=== PATIENT | male | born 1960 | race Two or more races ===

== ENCOUNTER → 2020-10-01 | Day surgery (SDC) | payer OTHER, MEDICAID ==
[~2020-10-01] VITALS: Ht 167.6 cm; Wt 68.0 kg
[~2020-10-01] MED LIST: ATOR20TA50 PO; BUPIVACAINE/DEXTROSE MPF 0.75% 2 ML AMP IT ONE; EPINEPHrine HCL 1 MG/10 ML SYRG ONE; IOHEXOL 300 MG/ML 100ML BOTTLE IJ ONE; LIDOCAINE 2% (LOCAL ANESTH.) PF 5ml SDV ONE; MIDAZOLAM HCL 1MG/1ML-2 ML VIAL ONE; OMEP20TA PO; ONDANSETRON HCL 4 MG/2 ML VIAL ONE; PROPOFOL 10 MG/ML 20 ML IV ONE; SODIUM BICARBONATE 8.4 % INJ 50ML VIAL IV ONE; SODIUM CHLORIDE LOCK 10 ML ONE; ceFAZolin 1GM/50ML 50 ML IV ONE; fentaNYL CITRATE 100 MCG/2 ML VL ONE
[2020-10-01 10:46] LABS: Calcium 8.9 mg/dL (8.5-10.1); Potassium 3.7 mmol/L (3.5-5.1)
[2020-10-01 10:50] LABS: BUN/Creatinine Ratio 17.9
[2020-10-01 13:10] VITALS: BP 142/97
== END | disposition home or self-care (01) ==
LOC: SUR 07:08
PROVIDERS: ATTEND Urology
DX: N31.9 Neuromuscular dysfunction of bladder, unspecified (principal); N13.30 Unspecified hydronephrosis; I20.9 Angina pectoris, unspecified; D64.9 Anemia, unspecified; I49.9 Cardiac arrhythmia, unspecified; Z87.440 Personal history of urinary (tract) infections; Z20.828 Contact with and (suspected) exposure to other viral communicable diseases; Z98.890 Other specified postprocedural states; Z88.6 Allergy status to analgesic agent; Z79.899 Other long term (current) drug therapy
CPT/HCPCS: 36415; 52000; 80048; J0171; J0690; J1642; J2001; J2250; J2405; J2704; J3010; Q9967; U0003

== ENCOUNTER 2021-01-07 06:28 | Day surgery (SDC) | payer OTHER, MEDICAID ==
[~2021-01-07] VITALS: Ht 167.6 cm; Wt 63.5 kg
[~2021-01-07 06:28] MED LIST changes: -ATOR20TA50 PO; -BUPIVACAINE/DEXTROSE MPF 0.75% 2 ML AMP IT ONE; +CHOL200021 PO; +DOCU100T15 PO; -EPINEPHrine HCL 1 MG/10 ML SYRG ONE; +FAMO-12 PO; -IOHEXOL 300 MG/ML 100ML BOTTLE IJ ONE; -LIDOCAINE 2% (LOCAL ANESTH.) PF 5ml SDV ONE; -MIDAZOLAM HCL 1MG/1ML-2 ML VIAL ONE; -OMEP20TA PO; -ONDANSETRON HCL 4 MG/2 ML VIAL ONE; +PANT40TA2 PO; -PROPOFOL 10 MG/ML 20 ML IV ONE; -SODIUM BICARBONATE 8.4 % INJ 50ML VIAL IV ONE; -SODIUM CHLORIDE LOCK 10 ML ONE; -ceFAZolin 1GM/50ML 50 ML IV ONE; -fentaNYL CITRATE 100 MCG/2 ML VL ONE
[2021-01-07] MEDS ORDERED: ceFAZolin 1GM/50ML 50 ML IV ONE (07:51)
[2021-01-07] MEDS ORDERED: hydrALAZINE HCL 20 MG/ML VL IV ONE (07:54)
[2021-01-07] MEDS ORDERED: PROPOFOL 10 MG/ML 20 ML IV ONE (07:54)
[2021-01-07] MEDS ORDERED: LIDOCAINE W/ EPINEPHRINE 1% 20ML VIAL ONE (07:58)
[2021-01-07] MEDS ORDERED: NEOMYCIN-BACITRACIN-POLYM 15GM TOP OINT TOP ONE (07:58)
[2021-01-07] MEDS ORDERED: MEPERIDINE HCL (25 MG/ML) 1ML VIAL ONE (08:05)
[2021-01-07] MEDS ORDERED: MIDAZOLAM HCL 2MG/2ML 2ml VIAL (1mg/ml) ONE (08:06)
[2021-01-07] MEDS ORDERED: fentaNYL CITRATE 100 MCG/2 ML VL ONE (08:06)
[2021-01-07] MEDS ORDERED: DexAMETHasone SOD PHOS 10MG/1ML VIAL INJ ONE (08:21)
[2021-01-07] MEDS ORDERED: MORPHINE SULFATE 4 MG/ML SYR/VIAL IV PRN (09:30)
[2021-01-07] MEDS ORDERED: MIDAZOLAM HCL 2MG/2ML 2ml VIAL (1mg/ml) IV PRN (09:30)
[2021-01-07] MEDS ORDERED: ePHEDrine SULFATE 50 MG/ML AMP IV PRN (09:30)
[2021-01-07] MEDS ORDERED: LABETALOL HCL 5 MG/ML 4ML SYRINGE IV PRN (09:30)
[2021-01-07] MEDS ORDERED: ONDANSETRON HCL 4 MG/2 ML VIAL IV PRN (09:30)
[2021-01-07] MEDS ORDERED: HYDROmorphone HCL 2 MG/ML VL IV PRN (09:30)
[2021-01-07 09:50] VITALS: BP 95/60
== END 2021-01-07 10:00 | disposition home or self-care (01) ==
LOC: SUR 06:28
PROVIDERS: ATTEND Urology
DX: N31.8 Other neuromuscular dysfunction of bladder (principal); N39.0 Urinary tract infection, site not specified; G82.50 Quadriplegia, unspecified; K21.9 Gastro-esophageal reflux disease without esophagitis; I10 Essential (primary) hypertension; Z93.0 Tracheostomy status; Z20.822 Contact with and (suspected) exposure to COVID-19; Z98.890 Other specified postprocedural states; Z79.899 Other long term (current) drug therapy; Z88.8 Allergy status to other drugs, medicaments and biological substances; Z93.3 Colostomy status
CPT/HCPCS: 51040; J0360; J0690; J1100; J2175; J2250; J2704; J3010; U0003